=== PATIENT | female | born 1950 | race Caucasian/White ===

== ENCOUNTER 2021-05-27 13:55 | Emergency (ER) | payer MEDICARE, OTHER ==
[~2021-05-27] VITALS: Ht 160 cm; Wt 81.6 kg
[~2021-05-27 13:55] MED LIST: ADULT LOW DOSE81 MG PO; ALENDRONATE SOD70 MG PO; BYSTOLIC2.5 MG PO; LOVASTATIN20 MG PO; RANITIDINE HCL150 M1 PO
[2021-05-27] MEDS ORDERED: MIRALAX17 GM PO (14:34)
[2021-05-27] MEDS ORDERED: DOCUSATE SODIU100 MG PO (14:34)
== END 2021-05-27 15:53 | disposition home or self-care (01) ==
LOC: FSED 14:00
DX: K59.00 Constipation, unspecified (principal); I10 Essential (primary) hypertension; E78.5 Hyperlipidemia, unspecified; E78.00 Pure hypercholesterolemia, unspecified; Z98.84 Bariatric surgery status
CPT/HCPCS: 99283